=== PATIENT | female | born 2000 ===

== ENCOUNTER 2024-07-22 08:29 | Outpatient (REF) | payer BC, SELFPAY ==
--- NOTE | ~2024-07-22 | US_ITS ---
CLINICAL HISTORY: SWELLING RIGHT NECK US of the right neck Comparison: None Findings: Within the area of clinical interest, there is a normal-appearing lymph node measuring 10 mm x 2 mm x 6 mm. Impression: Normal-appearing right cervical lymph node. This document has been electronically signed by: Reyes White MD on 07/23/2024 17:53:38
--- OUTSIDE RECORDS SUMMARY | 2024-07-22 08:50 | XMS_ITS | Encounter Summary ---
Author Organization [facility] Address [address] [place] [id number] Phone Care Team Providers Care Eye Technician Name Role Phone Judith Puente MD Primary Care Provider [phone] Reason for Visit * Reason Onset Date Comments Med Refill 01/24/2022 Encounter Details Date Type Department Care Team (Late st Contact Info) Description 01/24/2022 Refill [facility] - [address] [place] [address] Judith Puente MD [address] [place], [place] [address] [address] Encounter for contraceptive management, unspecified type Social History Tobacco Use Types Packs/Day Years Used Date Smoking Tobacco: Never Comments:never smoker Alcohol Use Standard Drinks/Week Comments No 0 (1 standard drink = 0.6 oz pur e alcohol) Comments No Sex and Gender Information Value Date Recorded Sex Assigned at Not on file Legal Sex Female 12:33 AM EST Gender Identity Not on file Sexual Orientation Not on file documented as of this encounter Miscellaneous Notes * Telephone Encounter - Michelle Thorne MA - 01/24/2022 5:05 PM EDT Spoke with pt and told her pcp will be in tomorrow and she was ok with waiting until then. Rx must be BRAND NAME ONLY and 90 day supply. * Telephone Encounter - Cathie Perez - 01/24/2022 4:04 PM EDT Pt called and asked if the Brand Name medication could be called into the [facility] in [place] this week so that Mom can bring the medication to Pt at [facility] this weekend Please advise if okay today send in refill. Thank you documented in this encounter Plan of Treatment Not on file documented as of this encounter Visit Diagnoses Diagnosis Encounter for contraceptive management, unspecified type documented in this encounter Care Teams Eye Technician Relationship Specialty Start Date End Date Judith Puente MD [address] [place] [address] PCP - General Pediatrics 08/05/21 05/31/23 documented as of this encounter
--- OUTSIDE RECORDS SUMMARY | 2024-07-22 08:50 | XMS_ITS | Encounter Summary ---
Author Organization [facility] Address [address] [place] [id number] Phone Care Team Providers Care Retort Cooler Name Role Phone Judith Puente MD Primary Care Provider [phone] Reason for Visit * Reason Comments Med Refill Encounter Details Date Type Department Care Team (Late st Contact Info) Description 01/24/2022 Refill [facility] - [address] [place] [address] Paulina Steven MD [address] [place] [address] Encounter for contraceptive management, unspecified type Social [...] Encounter - Michelle Thorne MA - 01/24/2022 3:55 PM EDT 3rd request, please refuse. documented in this encounter Plan of Treatment Not on file documented as of this encounter Visit Diagnoses Diagnosis Encounter for contraceptive management, unspecified type documented in this encounter Care Teams Retort Cooler Relationship Specialty Start Date End Date Judith Puente MD [address] [place] [address] PCP - General Pediatrics 08/05/21 05/31/23 documented as of this encounter
--- OUTSIDE RECORDS SUMMARY | 2024-07-22 08:50 | XMS_ITS | Encounter Summary ---
Author Organization [facility] Address [address] [place] [address] Phone Care Team Providers Care Icer Machine Operator Name Role Phone Judith Puente MD Primary Care Provider [phone] Encounter Details Date Type Department Care Team (Late st Contact Info) Description 05/24/2017 Conversion Encounter [facility] [place] [address] [place] [address] Onelia Hernandez MD Social History Tobacco Use Types Packs/Day Years Used Date Smoking Tobacco: Never Comments:never smoker Alcohol Use Standard Drinks/Week Comments No 0 (1 standard drink = 0.6 oz pur e alcohol) Comments Unknown Sex and Gender Information Value Date Recorded Sex Assigned at Not on file Legal Sex Female 12:33 AM EST Gender Identity Not on file Sexual Orientation Not on file documented as of this encounter Plan of Treatment Not on file documented as of this encounter Visit Diagnoses Not on filedocumented in this encounter Care Teams Icer Machine Operator Relationship Specialty Start Date End Date Judith Puente MD [address] [place] [address] PCP - General Pediatrics 08/05/21 05/31/23 documented as of this encounter
--- OUTSIDE RECORDS SUMMARY | 2024-07-22 08:50 | XMS_ITS | Encounter Summary ---
Author Organization [facility] Address [address] [place] [address] Phone Care Team Providers Care Flavorings Compounder Name Role Phone Judith Puente MD Primary Care Provider [phone] Reason for Visit * Reason Onset Date Comments Med Refill 10/20/2020 Encounter Details Date Type Department Care Team (Late st Contact Info) Description 10/20/[address] [place] [address] Onelia Hernandez MD Encounter for contraceptive management, unspecified type Social [...] encounter Miscellaneous Notes * Telephone Encounter - Cory Meng MA - 10/20/2020 11:57 AM EDT In system request for refill on her ocp. Has well visit in November and had follow up in May documented in this encounter Plan of Treatment Not on file documented as of this encounter Visit Diagnoses Diagnosis Encounter for contraceptive management, unspecified type documented in this encounter Care Teams Flavorings Compounder Relationship Specialty Start Date End Date Judith Puente MD [address] [place] [address] PCP - General Pediatrics 08/05/21 05/31/23 documented as of this encounter
--- OUTSIDE RECORDS SUMMARY | 2024-07-22 08:50 | XMS_ITS | Encounter Summary ---
Author Organization [facility] Address [address] [place] [address] Phone Care Team Providers Care Liquor Rectifier Name Role Phone Unavailable Primary Care Provider Unavailabl e Reason for Visit * Reason Comments Med Refill Encounter Details Date Type Department Care Team (Late st Contact Info) Description 06/10/2023 Refill [facility] - [address] [place] [address] Judith Puente MD [address] [place] [address] Encounter for contraceptive management, unspecified type Social [...] encounter Miscellaneous Notes * Telephone Encounter - Flor Murguia MA - 06/11/2023 10:59 AM EDT Received refill request through interface. Please refuse pt no longer a pt. documented in this encounter Plan of Treatment Not on file documented as of this encounter Visit Diagnoses Diagnosis Encounter for contraceptive management, unspecified type documented in this encounter
--- OUTSIDE RECORDS SUMMARY | 2024-07-22 08:50 | XMS_ITS | Clinical Summary ---
Author Organization [facility] Address [address] [place] [address] Phone Care Team Providers Care Manager Consumer Name Role Phone Unavailable Primary Care Provider Unavailabl e Allergies No known active allergies Medications levonorgestrel-eth inyl estradiol (Sronyx) 0.1-20 MG-MCG per tabletIndications: Encounter for contraceptive management, unspecified type Take 1 tablet by mouth once daily. 84 tablet 4 Active Active Problems Problem Noted Date Diagnosed Date High-frequency hearing loss of left ear 02/11/20 20 Overview (02/11/2020): Mild dip in 4000 hz frequency noted in ENT eval for ear pain 01/2020, suggested recheck 4-6mo Otalgia 2020 Overview (02/11/2020): ENT exam 01/2020 nl, suspect TMJ issue Encounter for contraceptive management 0 Assessment & Plan (2020 5:17 PM EST): Pt reviewed HO. Will check with neuro re BC and f/u with pt. Reviewed r/b. Pseudotumor cerebri syndrome 12/03/2019 Overview (12/03/2019): Episodes of severe OZUNA and vision problems, [place] [facility] [place] [facility] [place]. RX'd diamox with marked improvement. [place] to be related to weight gain. Seen in f/u 10/2019 nl exam and off diamox. Assessment & Plan (04/18/2022 9:15 AM EST): Had eye appointment within the last month. No need to restart medication, no visual disturbances or complaints today. Body mass index (bmi) pediat luigi, 85th percentile to less than 95th percentile for age 0609/08/2015 Overview (07/21/2022): Diagnosis load June 2022 Assessment & Plan (01/15/2019 6:01 PM EDT): We reviewed the health consequences of being overweight and the benefits of losing 5-10% of body weight. I encouraged her to work out 4-5x/week and see our sales analytics manager. Assessment & Plan (11/26/2018 3:37 PM EDT): Discussed increasing fruits and vegetables, and activity. Mom and Liudmila are aware of the plan and agrees. Resolved Problems Problem Noted Date Diagnosed Date Resolved Date Counseling for control , oral contraceptives 01/15/2019 12/03/2019 Assessment & Plan (01/15/2019 6:04 PM EDT): We reviewed the HO re directions of using BC and the possible side effects of the pill. I encouraged pt to discuss this with her mother. Recheck 3 mo for BP or sooner prn side effects. HCG urine neg here. RX for alesse given Acne vulgaris 11/13/2018 12/03/2019 Assessment & Plan (01/15/2019 6:00 PM EDT): She was advised to continue epiduo tx Assessment & Plan (11/26/2018 3:33 PM EDT): Just started 11/13/18- but has already started to see an improvement. Will continue with Doxycycline and and moisturizer. Assessment & Plan (11/13/2018 12:54 PM EDT): Bec of insurnce coverage I suggested pt obtain epiduo with the Good [facility] sung for less expense. I have started doxycycline and we reviewed moisturization and SS> Recheck in 2 mo, if no improvement consider BCP for tx Back pain at L4-L5 level 09/19/201705/2018 Assessment & Plan (09/19/2017 3:07 PM EDT): Will check film and advised pt to begin muscle strengthening/conditioning program . Acute pain of left knee 07/25/2017 09/05/2018 Assessment & Plan (07/25/2017 4:33 PM EDT): Ibuprofen 600mg tid with food. Stretch before sports and ice down after. If worsens no running and Rest for 2 weeks. If not improved can refer to ortho. Chest pain, exertional 07/02/201707/25 Assessment & Plan (07/02/2017 6:19 PM EDT): Based on history and exam likely costocondritis. WIll check CXY to r/o injury. DIscussed causes of CP in teens and that pt does not have any cardiac/pulmonary or GI sxs and this pain is reproducible on exam. ADv to use IB tid x 3-5d and cool compresses q 2-3hr. RTn if any changes or concerns Acquired right flat foot 09/19/201605/2018 Allergic rhinitis 08/10/2012 09/19/2017 Extrinsic asthma 08/10/2012 07/25/2017 Undiagnosed cardiac murmurs 07/31/2012 09/19/2017 Overview (09/19/2017): Cardiology eval, EKG 2016 innocent murmur Immunizations Immunization Administration Dates Next Due COVID-19 Pfizer, bivalent, 12+ years 04/18/2022 DTaP 5 03/28/2006, 4,2002,06/12,2002 HPV Vaccine 9 Valent 05/27/2015,12/25/2014,09/07 Hep B, ped/adol 2002,2002,2002 Hib (PRP-T) 05/06/2003, 3,2002,04/10 IPV 03/28/2006, 4,2002,06/12,2002 Influenza, injectable, quadr ivalent, preservative free 12/03/2019,01/15/2019,03/12/2018 Influenza, injectable, trivalent 014,04/22/2012,12/27/2010,01/11 Influenza, injectable, triva lent, preservative free 05/10/2017 MMR 05/06/2003 MMRV 03/28/2006 Meningococcal Conj (Menactra) MCV4P 11/26/2018,0 08/06/2013 Pneumococcal Conjugate 03/10/2003,2002,2002,04/10 Tdap 09/07/2014 Varicella 02/04/2003 Family History Medical History Relation Name Comments No Known Problems Brother Hypertension Father No Known Problems Father's Brother No Known Problems Father's Sister No Known Problems Maternal Grandfather Breast cancer Maternal Grandmother Diabetes Maternal Grandmother No Known Problems Mother No Known Problems Mother's Brother No Known Problems Mother's Sister No Known Problems Other No Known Problems Paternal Grandfather No Known Problems Paternal Grandmother No Known Problems Sister Relation Name Status Comments Brother Father Alive htn age: 52 michell gnosed with Hypercholesterolemia Father's Brother Father's Sister Alive Overweight Maternal Grandfather diagnos ed with Diabetes Mellitus unspecified Maternal Grandmother Alive Breast Ca diagnosed with Other malignant neoplasm of unspecified site Mother Alive age: 52 Mother's Brother Mother's Sister Other Alive Siblings: Paternal Grandfather diagnos ed with Other malignant neoplasm of unspecified site Paternal Grandmother Alive Sister Social History Tobacco Use Types Packs/Day Years Used Date Smoking Tobacco: Never Comments:never smoker Alcohol Use Standard Drinks/Week Comments No 0 (1 standard drink = 0.6 oz pur e alcohol) Comments No Sex and Gender Information Value Date Recorded Sex Assigned at Not on file Legal Sex Female 12:33 AM EST Gender Identity Not on file Sexual Orientation Not on file Last Filed Vital Signs Vital Sign Reading Time Taken Comments Blood Pressure 122/78 04/18/2022 10:09 AM EST Pulse 84 04/18/2022 9:05 AM EST Temperature 36.5 ??C (97.7 ??F) 01/15/2021 10:05 AM E DT Respiratory Rate - - Oxygen Saturation 100% 07/02/2017 4:06 PM EDT Inhaled Oxygen Concentration - - Weight 87.1 kg (192 lb) 04/18/2022 9:05 AM EST Height 154.9 cm (5' 1 ) 04/18/2022 9:05 AM EST Body Mass Index 36.28 04/18/2022 9:05 AM EST Plan of Treatment Health Maintenance Due Date Last Done Comments Hepatitis B Vaccines (3 of 3 - 3-dose series) 01/22/2003 2002, 2002, 2002 HIV Screening 2017 Men B Vaccine (1 of 2 - Standard) 2018 Hepatitis C Screening 02/03/2020 Influenza Vaccines (#1) 2023 12/03/19, 01/15/2019, 03/12/2018, Additional history exists COVID-19 Vaccine ( season) 2023 04/18/2022, 04/06/2021, 07/24/2020, Additional history exists Chlamydia and Gonorrhea Screening 03/26/2024 04/18/2022, 2020, 11/26/2018 DTaP,Tdap,and Td Vaccines (7 - Td or Tdap) 09/07/2024 09/07/2014, 03/28/2006, 05/06/2003, Additional history exists Pneumococcal Vaccine Completed 03/10/2003, 2002, 2002, Additional history exists HIB Vaccines Completed 05/06/2003, 07/25, 2002, Additional history exists IPV Vaccines Completed 03/28/2006, 05/2003, 2002, Additional history exists MMR Vaccines Completed 03/28/2006, 05/06/2003 Varicella Vaccines Completed 03/28/2006, 02/04/2003 HPV Vaccines Completed 05/27/2015, 04/2014, 09/07/2014 Meningococcal Vaccine Completed 11/26/2018, 014 Hepatitis A Vaccines Aged Out No long er eligible based on patient's age to complete this topic Procedures * Due to [place] state law, this organization might not be sharing sensitive test results. Procedure Name Priority Date/Time Associated Diagnosis Comments CHLAMYDIA AND GONORRHEA, AMPLIFIED Routine 04/18/2022 9:47 AM EST Encounter for screening examination for sexually transmitted disease from Last 3 Months or Most Recently Relevant to Health Maintenance Results * Due to [place] state law, this organization might not be sharing sensitive test results. * Chlamydia and Gonorrhoea, Amplified (Urine) (04/18/2022 9:47 AM EST) Chlamydia Trachomatis, LAURI Negative Negative [facility] Gonococcus by Nucleic Acid Amp Negative Negative [facility] Comment: Performed at: ??RN - [facility] [address] ??[id number] Remittance Clerk: Tameka Lazaro MD, Phone: ??[phone] NOVOADDED [facility] Comment: Patient Ordering physician: ??Michela Isabel NP Other providers: ??Michela Isabel, ??, ??, ?? , Michela Isabel, ??, ? Urine (Urine, Random (not clean void)) 04/18/2022 9:47 AM EST 04/18/2022 2:09 PM EST us Michela Isabel NP LAB MICROBIOLOGY - GENERAL O RDERABLES Final Result [facility] from Last 3 Months or Most Recently Relevant to Health Maintenance Insurance [facility] PPO
--- OUTSIDE RECORDS SUMMARY | 2024-07-22 08:50 | XMS_ITS | Encounter Summary ---
Author Organization [facility] Address [address] [place] [phone] Phone Care Team Providers Care Uat Tester Name Role Phone Judith Puente MD Primary Care Provider [phone] Reason for Visit * Reason Onset Date Comments Med Refill 01/24/2022 Encounter Details Date Type Department Care Team (Late st Contact Info) Description 01/24/2022 Refill [facility] - [address] [place] [address] Judith Puente MD [address] [facility] [place] [address] Encounter for contraceptive management, unspecified type Social [...] Encounter - Michelle Thorne MA - 01/24/2022 10:00 AM EDT In system request for OCP. Last well visit was in 2019. Has a med check scheduled for 02/15/22 documented in this encounter Plan of Treatment Not on file documented as of this encounter Visit Diagnoses Diagnosis Encounter for contraceptive management, unspecified type documented in this encounter Care Teams Uat Tester Relationship Specialty Start Date End Date Judith Puente MD [address] [place] [address] PCP - General Pediatrics 08/05/21 05/31/23 documented as of this encounter
--- OUTSIDE RECORDS SUMMARY | 2024-07-22 08:50 | XMS_ITS | Clinical Summary ---
Author Organization [facility] Address [address] [id number] Care Team Providers Care Pension Fund Manager Name Role Phone Michela Galvin Primary Care Provider [phone] Allergies No known active allergies Medications Crisaborole 2 % OintmentIndicati ons:Atopic dermatitis, unspecified type Apply 1 Application topically 2 (two) times a day. 60 g 4 Active Ibuprofen (ADVIL,MOTRIN) 600 MG tabletIndication s:TMJ (temporomandibul ar joint syndrome) TAKE ONE TABLET (600 MG) EVERY 8 (EIGHT) HOURS IF NEEDED FOR MILD OR MODERATE PAIN TAKE WITH FOOD. 90 tablet 4 Active Albuterol (PROVENTIL HFA;VENTOLIN HFA) 90 mcg/ACT inhalerIndicatio ns:Bronchospasm Inhale two puffs every 4 (four) hours if needed for wheezing or shortness of breath Dispense Generic or Brand Albuterol per preferred payor coverage.. 1 each 5 09/19/19 26 Active Levonorgestrel-E thinyl Estrad (Vienva) 0.1-20 MG-MCG per tablet Take one tablet by mouth 1 (one) time each day. 90 tablet 3 5 09/19/19 26 Active Mupirocin (BACTROBAN) 2 % ointmentIndicati ons:Paronychia of great toe of left foot Apply topically 3 (three) times a day for 7 days. 22 g 04/08/09/19 Active Active Problems Problem Noted Date Diagnosed Date Neck mass 07/13/2024 Overview (07/13/2024): 07/13/2024 2-3 cm in size she is going to a local clinic to have that examined- I advised they do an US as ddx includes lymph node, cyst, or other pathology. I also advised they do an in person exam of the throat and neck to further guide clinical decision making. The importance of this was reviewed with the patient and she understands the need for prompt follow up. Benign intracranial hypertension 03/09/2019 Overview (06/17/2024): Outside Records: Episodes of severe OZUNA and vision problems, seen at [facility] [place] [place] [facility]. RX'd diamox with marked improvement. [place] to be related to weight gain. Seen in f/u 10/2019 nl exam and off diamox. 06/12/2023 following with [facility] for pseudotumor cerebri in remission and variable ocular hypertension; next appt 06/12/23. Current regimen: diamox 500mg BID PRN for flares. Triggered by weight gain -Most recent flare in 08/2022; manifests as OZUNA, eye pain, blurred vision. 06/17/2024 followed by neuro-ophthalmology. Stable Resolved Problems Problem Noted Date Diagnosed Date Resolved Date Glaucoma suspect of both eyes 02/26/2020 06/12/2023 High-frequency hearing loss of left ear 02/11/2020 06/12/2023 Overview (06/12/2023): Mild dip in 4000 hz frequency noted in ENT eval for ear pain 01/2020, suggested recheck 4-6mo Encounters Date Type Department Care Team Description 07/13/2024 3:20 PM EDT Office Visit [address] [phone] Mick Leal MD Neck mass (Primary Dx); Arthritis of temporomandibular joint, unspecified laterality 07/02/2024 4:40 PM EDT Office Visit [address] [phone] [place]arzyna Gomez [place] [place]onychia of great toe of left foot (Primary Dx) 06/17/2024 10:20 AM EDT CPE - Comprehensive Physical Exam [address] [address] Michela Galvin PA Routine history and physical examination of adult (Primary Dx); Encounter for screening for infections with predominantly sexual mode of transmission; Screening, lipid; Need for hepatitis C screening test; Screening for endocrine, metabolic and immunity disorder 06/10/[address] [phone] [place]arzyna [place] [place] Request 06/03/[address] [address] Michela Galvin PA Refill Request 06/03/[address] [address] Michela Galvin PA E-prescribing Refill Request 04/30/2024 2:20 PM EST Office Visit [address] [phone] Katarzyna Gomez [place] [place] Sinus congestion (Primary Dx); Bronchospasm; Benign intracranial hypertension from Last 3 Months Immunizations Name Administration Dates Next Due COVID-19, mRNA (Pfizer Pre F all 2022) Monovalent, 30 mcg/0.3 ml 04/06/2021,07/24/2020,07/03/2020 Covid-19, mRNA (Pfizer Pre F all 2022) Bivalent, 30 mcg/0.3 ml velvet-sucrose (12+) dose 04/18/2022 DTaP 2002,2002,2002 DTaP (Daptacel) 03/28/2006,05/06/2003 HIB (PRP-T) 05/06/2003, 3,2002,04/10 HPV9 (Gardasil 9) 05/27/2015,12/25/2014,09/08/19 15 Hep B (pedi) 2002,2002,2002 IPV 03/28/2006, 4,2002,06/12,2002 Influenza,injectable,quad,Prsrv Fr 12/03/2019,,03/12/2018 Influenza,seasonal,trivalent ,preservat lenny (FLUZONE MDV) 02/24/2014,04/22/2012,12/27/2010,01/11 MMR 05/06/2003 MMRV (Proquad) 03/28/2006 Meningococcal ACWY (Menactra) 11/26/2018, 014 PCV-7 03/10/2003, 3,2002,04/10 Tdap 09/07/2014 Varicella 02/04/2003 influenza,seasonal,trivalent ,PF (Fluzone, Fluarix, Flulaval) 05/10/2017 Family History Medical History Relation Name Comments Eczema/Atopic Dermatitis Father Angel Arthritis/Joint disorder Maternal aunt 1 Belinda Asthma Maternal aunt 1 Belinda Hearing Loss Maternal aunt 2 Lydia Diabetes Maternal cousin Julia DM1 Cancer - Lung Maternal grandfather Homero non-sm oker Arthritis/Joint disorder Maternal grandmother Lakisha Asthma Maternal grandmother Lakisha Cancer - Breast Maternal grandmother Lakisha Diabetes Maternal grandmother Lakisha Thyroid Disorder Maternal grandmother Lakisha Cancer - Testicular Maternal uncle 1 Andres Diabetes Maternal uncle 1 Andres Hearing Loss Maternal uncle 1 Andres Hearing Loss Maternal uncle 2 Tony Arthritis/Joint disorder Mother Flor Alcohol/Drug Paternal grandfather Kirk Cancer - Lung Paternal grandfather Kirk non-sm oker Relation Name Status Comments Father Angel Maternal aunt 1 Belinda Maternal aunt 2 Lydia Maternal cousin Julia Maternal grandfather Homero Maternal grandmother Lakisha Maternal uncle 1 Andres Maternal uncle 2 Tony Maternal uncle 3 Terry Mother Flor Paternal grandfather Kirk Social History Tobacco Use Types Packs/Day Years Used Date Smoking Tobacco: Never Smokeless Tobacco: Never Tobacco Cessation:Counseling Given: Not Answered Comments:None Alcohol Use Standard Drinks/Week Comments Yes 0 (1 standard drink = 0.6 oz pur e alcohol) every few weeks 2-4 drinks PHQ-2 Answer Date Recorded PHQ-2 Score 0 06/17/2024 PHQ-9 Answer Date Recorded PHQ-9 Score 0 06/17/2024 Intimate Partner Violence Answer Date R ecorded Fear of Current or Ex-Partner Not on file Emotionally Abused Not on file 11/25/2022 Physically Abused Not on file 11/25/2022 Sexually Abused Not on file 11/25/2022 Feel Safe at Home Not on file 11/25/2022 Comments No Sex and Gender Information Value Date Recorded Sex Assigned at Female 04/13/2022 1:50 PM EST Legal Sex Female 7:10 PM EDT Gender Identity Female 04/13/2022 1:50 PM EST Sexual Orientation Straight 06/01/2023 2: 39 PM EST Last Filed Vital Signs Vital Sign Reading Time Taken Comments Blood Pressure 112/70 06/12/2023 8:57 AM EDT Pulse - - Temperature 36.9 ??C (98.4 ??F) 12/12/2023 1:03 PM ED T Respiratory Rate - - Oxygen Saturation - - Inhaled Oxygen Concentration - - Weight 81.3 kg (179 lb 3.2 oz) 06/17/2024 10:23 AM EDT Height - - Body Mass Index - - Plan of Treatment Upcoming Encounters Date Type Department Care Team (Latest Contact Info) Description 06/23/2025 10:20 AM EDT CPE - Comprehensive Physical Exam [facility] [address] [place] [address] Michela Galvin PA [address] [place] [address] virtual cpe Health Maintenance Due Date Last Done Comments Hepatitis C Screening 2002 Pap Smear 2018 Chlamydia 04/18/2023 04/18/2022 COVID-19 Vaccine ( season) 2023 04/18/2022, 04/06/2021, 07/24/2020, Additional history exists Influenza (#1) 2023 12/03/2019, 12/25, 03/12/2018, Additional history exists DTaP/Tdap/Td (7 - Td or Tdap) 09/07/2024 09/07/2014, 03/28/2006, 05/06/2003, Additional history exists Zoster (Shingrix) (1 of 2) 02/03/2052 03/28/2006, Hep B Completed 2002, 02/23, 2002 Pneumococcal Aged Out 03/10/2003, 07/25, 2002, Additional history exists No longer eligible based on patient's age to complete this topic Hib Completed 05/06/2003, 07/25, 2002, Additional history exists HPV Vaccine Completed 05/27/2015, 04/2014, 09/07/2014 Meningococcal ACWY Completed 11/26/2018, 08/06/2013 Physical Discontinued 06/17/2024, 05/24, 04/18/2022, Additional history exists Hep A Aged Out No longer eligi ble based on patient's age to complete this topic Insurance BCBS CAP PPO Care Teams Pension Fund Manager Relationship Specialty Start Date End Date Michela Galvin PA [address] [place] [id number] PCP - General Internal Medicine 06/01/23
--- OUTSIDE RECORDS SUMMARY | 2024-07-22 08:50 | XMS_ITS | Encounter Summary ---
Author Organization [facility] Address [address] [place] [phone] Phone Care Team Providers Care Therapy Assistant Name Role Phone Judith Puente MD Primary Care Provider [phone] Reason for Visit * Reason Comments Med Refill Encounter Details Date Type Department Care Team (Late st Contact Info) Description 04/04/2022 Refill [facility] - [address] [place] [address] Judith Puente MD [address] [place] [address] Encounter for contraceptive management, unspecified type Social [...] encounter Miscellaneous Notes * Telephone Encounter - Lory Deluca - 04/05/2022 2:37 PM EST Called patient to inform she is overdue for a well visit but must speak with billing first before scheduling. Patient stated she was at work and unable to speak to billing, but would call back at a later time. Med check appt has been scheduled for 04/24/[address] Puente, per patient's request for a later afternoon appt. Patient is hoping Rx can be sent to pharmacy before this appt takes place. * Telephone Encounter - Michelle Thorne MA - 04/05/2022 1:44 PM EST In system request for OCP. Last well visit on 12/03/19, unable to make well visit appt due to bad debt in chart. She was suppose to take care of that and call to schedule an appt (see TE on 03/24/22) FD -- If pt is still unable to book a well visit, please schedule for a med check so provider can still check in on the pt. documented in this encounter Plan of Treatment Not on file documented as of this encounter Visit Diagnoses Diagnosis Encounter for contraceptive management, unspecified type documented in this encounter Care Teams Therapy Assistant Relationship Specialty Start Date End Date Judith Puente MD [address] [place] [address] PCP - General Pediatrics 08/05/21 05/31/23 documented as of this encounter
--- OUTSIDE RECORDS SUMMARY | 2024-07-22 08:50 | XMS_ITS | Encounter Summary ---
Author Organization [facility] Address [address] [place] [phone] Phone Care Team Providers Care Intelligence Applications Name Role Phone Judith Puente MD Primary Care Provider [phone] Reason for Visit * Reason Onset Date Comments Med Refill 01/24/2022 Encounter Details Date Type Department Care Team (Late st Contact Info) Description 01/24/2022 Refill [facility] - [address] [place] [address] Judith Puente MD [address] [place] [address] Encounter for contraceptive management, unspecified type Social [...] Encounter - Michelle Thorne MA - 01/24/2022 3:54 PM EDT Duplicate request, please refuse. documented in this encounter Plan of Treatment Not on file documented as of this encounter Visit Diagnoses Diagnosis Encounter for contraceptive management, unspecified type documented in this encounter Care Teams Intelligence Applications Relationship Specialty Start Date End Date Judith Puente MD [address] [place] [address] PCP - General Pediatrics 08/05/21 05/31/23 documented as of this encounter
--- OUTSIDE RECORDS SUMMARY | 2024-07-22 08:50 | XMS_ITS | Encounter Summary ---
Author Organization [facility] Address [address] [place] [id number] Phone Care Team Providers Care Software Build Engineer Name Role Phone Judith Puente MD Primary Care Provider [phone] Reason for Visit * Reason Comments Med Refill Encounter Details Date Type Department Care Team (Late st Contact Info) Description 11/07/2021 Refill [facility] - [address] [address] Nick Segovia MD Encounter for contraceptive management, unspecified type [...] encounter Miscellaneous Notes * Telephone Encounter - Katarzyna Mendez MD - 11/11/2021 9:18 AM EDT Reviewed and signed. Katarzyna Mendez MD * Telephone Encounter - Alesia Cisneros - 11/11/2021 8:58 AM EDT Please review since TR is out this week * Telephone Encounter - Miranda Kaur - 11/07/2021 1:24 PM EDT Patient is away at college. She booked a well visit for when she is home in January. Can we refilluntil then? * Telephone Encounter - Lory Deluca - 11/07/2021 1:11 PM EDT Called patient to schedule [place] - No answer, left voicemail to return phone call to schedule. * Telephone Encounter - Katarzyna Mendez MD - 11/07/2021 12:18 PM EDT I will give her one month so we can get appts scheduled Thanks Katarzyna Mendez MD * Telephone Encounter - Cory Meng MA - 11/07/2021 12:12 PM EDT Patient needs refill on her OCP Last well visit was on 12/03/19. Had follow up with Dr Hernandez on 06/17/20 Needs well visit scheduled. documented in this encounter Plan of Treatment Not on file documented as of this encounter Visit Diagnoses Diagnosis Encounter for contraceptive management, unspecified type documented in this encounter Care Teams Software Build Engineer Relationship Specialty Start Date End Date Judith Puente MD [address] [place] [address] PCP - General Pediatrics 08/05/21 05/31/23 documented as of this encounter
== END 2024-07-22 08:30 | disposition home or self-care (01) ==
LOC: HO.UMASIMG 08:29
PROVIDERS: Visit Provider Emergency Medicine
DX: R22.1 Localized swelling, mass and lump, neck (principal)
CPT/HCPCS: 76536

== ENCOUNTER → 2024-07-22 11:30 | Outpatient (BNV) | payer BC, SELFPAY | PROVIDERS: Visit Provider Radiology Diagnostic Radiology | DX: R22.1 Localized swelling, mass and lump, neck (principal) | CPT/HCPCS: 76536 ==